=== PATIENT | female | born 1970 | race Caucasian/White ===

== ENCOUNTER 2016-09-10 09:41 | Day surgery (SDC) | payer BC ==
[2016-09-08 14:30] VITALS: BMI 25.6
[~2016-09-10 09:41] MED LIST: LACTATED RINGERS 1,000 ML IV SCH; LIDOCAINE 1% 20 ML VIAL (10MG/ML) FOR IV START INTRADERMA PRN
[2016-09-10] MEDS ORDERED: SCOPOLAMINE 1.5MG/72HR PATCH TRANSDERM STA (10:32)
[2016-09-10] MEDS ORDERED: ONDANSETRON 4 MG/2 ML VIAL IVP STA (10:32)
[2016-09-10 10:35] VITALS: TEMP 98.3
[2016-09-10] MEDS ORDERED: SCOPOLAMINE 1.5MG/72HR PATCH TRANSDERM ONE (10:42)
[2016-09-10] MEDS ORDERED: LIDOCAINE 1% INJ 10MG/ML (20 ML MDV) ONE (10:44)
[2016-09-10] MEDS ORDERED: PROPOFOL 10 MG/ML 20 ML VIAL IV ONE (10:44)
--- NOTE | 2016-09-10 11:02 | P.PCN ---
Date of Procedure: 09/10/16 Preoperative Diagnosis: Postoperative Diagnosis: Procedure(s) Performed: BRIEF HISTORY: Patient is a 46year-old, pleasant, white female, scheduled for an upper endoscopy as a part of evaluation of long-standing history of gastro esophageal reflux symptoms of several years duration. For the last 2 months she is been having intermittent dysphagia to solids especially with meat and bread but denies any choking episodes. She remains on Nexium 40 mg daily for several years. She is scheduled for an upper endoscopy with possible dilation today. PROCEDURE PERFORMED: Esophagogastroduodenoscopy with biopsy . PREOPERATIVE DIAGNOSIS: long-standing history of GERD and intermittent dysphagia to solids IV sedation per anesthesia. PROCEDURE: After informed consent was obtained, the patient was brought into the endoscopy unit. IV sedation was administered by Anesthesia under continuous monitoring. Initially the Olympus GIF-140 video endoscope was inserted into the mouth. Esophagus intubated without any difficulty. It was gradually advanced into the stomach and duodenum and carefully examined. The bulb and the second part of the duodenum appeared normal. The scope at this time was withdrawn to the stomach, adequately insufflated with air, and upon careful examination, mucosa of the antrum had mild mottling of the mucosa and biopsies were done from this area. The body, cardia and the fundus appeared normal. The scope was then withdrawn into the esophagus. Small hiatal hernia noted.The GE junction was located at 39 cm from the incisors. There were superficial mucosal rings noted in the distal esophagus but no obvious stricture identified. The rest of the esophagus appeared normal. Biopsies were done from the mid and distal esophagus to rule out years of age esophagitis. There were no erosions or ulcerations seen and the patient tolerated the procedure well. IMPRESSION: 1. Mild antral gastritis 2. Multiple small gastric polyps 3. Small hiatal hernia 4. Mild reflux esophagitis 5. Superficial mucosal rings in the distal esophagus but no esophageal stricture, status post biopsy to rule out eosinophilic esophagitis. RECOMMENDATIONS: The findings of this examination were discussed with the patient as well as a family. She was advised to follow with the biopsy results. In the meantime she will continue with Nexium 40 mg daily and follow antireflux measures. She was advised to follow up in office in 3-4 weeks. Implants: Indications for Procedure: Operative Findings: Description of Procedure:
[2016-09-10 11:11] VITALS: RESP 18
[2016-09-10 11:23] VITALS: BP 116/79; PULSE 80
== END 2016-09-10 12:03 | disposition home or self-care (01) ==
LOC: ORWHC2ENDO 09:41
PROVIDERS: ATTEND Internal Medicine Gastroenterology
DX: K31.7 Polyp of stomach and duodenum (principal); K44.9 Diaphragmatic hernia without obstruction or gangrene; K29.70 Gastritis, unspecified, without bleeding; K21.0 Gastro-esophageal reflux disease with esophagitis; R13.10 Dysphagia, unspecified; I10 Essential (primary) hypertension; J45.909 Unspecified asthma, uncomplicated; Z79.899 Other long term (current) drug therapy
CPT/HCPCS: 81025; 88305; 88342; 43239; J2001; J2704

== ENCOUNTER 2018-10-13 10:12 | Emergency (ER) | payer BC ==
[2018-10-13 10:20] VITALS: RESP 16; TEMP 97.9
[2018-10-13] MEDS ORDERED: KETOROLAC 30 MG/ML 1 ML VIAL IVP STA (10:37)
[2018-10-13] MEDS ORDERED: SODIUM CHLORIDE 0.9% 500 ML 500 ML IV STA (10:37)
[2018-10-13] MEDS ORDERED: SODIUM CHLORIDE 0.9% 1,000 ML IV STA (10:37)
[2018-10-13 10:45] LABS: Basophils # (A) 0.1 k/uL (0-0.2); Basophils % (A) 1 %; Eosinophils # (A) 0.2 k/uL (0-0.7); Eosinophils % (A) 2 %; HCT 43.4 % (34.0-46.0); HGB 14.5 gm/dL (11.4-16.0); Lymphocytes # (A) 2.1 k/uL (1.0-4.8); Lymphocytes % (A) 21 %; MCH 31.7 pg (25.0-35.0); MCHC 33.3 g/dL (31.0-37.0); Monocytes # (A) 0.4 k/uL (0-1.0); Monocytes % (A) 4 %; Neutrophils # (A) 7.1 k/uL (1.3-7.7); Neutrophils % (A) 71 %; Platelet Count 483 k/uL (150-450); RBC 4.57 m/uL (3.80-5.40)
[2018-10-13 10:57] LABS: ALT 23 U/L (9-52); AST 23 U/L (14-36); African American GFR (CKD) >90 (>60 ml/min/1.73 sqM); Albumin 4.8 g/dL (3.5-5.0); Alkaline Phosphatase 59 U/L (38-126); Amylase 84 U/L (30-110); Anion Gap 13 mmol/L; Blood Urea Nitrogen 9 mg/dL (7-17); Calcium 10.2 mg/dL (8.4-10.2); Carbon Dioxide 27 mmol/L (22-30); Chloride 102 mmol/L (98-107); Glucose 104 mg/dL (74-99); Non-African American GFR(CKD) >90 (>60 ml/min/1.73 sqM); Potassium 3.7 mmol/L (3.5-5.1); Sodium 142 mmol/L (137-145); Total Bilirubin 0.8 mg/dL (0.2-1.3)
--- NOTE | 2018-10-13 10:57 | CT ---
EXAMINATION TYPE: CT abdomen pelvis wo con DATE OF EXAM: 10/13/2018 COMPARISON: None HISTORY: 48-year-old female LLQ pain CT DLP: 410.4 mGycm. Automated exposure control for dose reduction was used. TECHNIQUE: Contiguous axial scanning of the abdomen and pelvis without IV contrast. Coronal and sagit etj reconstructions performed. FINDINGS: Heart normal size without pericardial effusion. Lung bases clear without pleural effusion. Small hiatal hernia. Liver is upper limits of normal in size at 17.4 cm. Otherwise, noncontrast appearance of the liver, gallbladder, adrenal glands, seen with hilar splenule , and pancreas show no gross abnormality. Nonobstructive 8 mm right renal calculus. Punctate nonobstructive 2 mm left renal calculus. There is mild to moderate hydronephrosis along with left-sided hydroureter and a 7 mm calculus within the distal third left ureter. No dilated small bowel, free fluid, or free air. No mesenteric or retroperitoneal lymphadenopathy. Tiny fatty umbilical hernia. Mildly redundant sigmoid colon. Mild scattered stool. No pericolonic inflammatory change. Bladder partially distended. Uterus is anteverted. Some calcifications within and heterogeneity sugge st underlying fibroid change. The ovaries are visualized. No abnormal fluid collection in the pelvis or pelvic lymphadenopathy. Bones: Mild degenerative change at the hips. Bilateral L5 pars defects without malalignment. IMPRESSION: 1. A 7 mm calculus in the distal left ureter with mild to moderate obstructive uropathy. 2. Additional 8 mm right and 2 mm left nonobstructive renal calculi. 3. Small hiatal hernia and bilateral L5 pars defects.
--- NOTE | 2018-10-13 10:59 | ED ---
General Adult HPI - General Chief complaint: Urogenital Stated complaint: Abd pain Time Seen by Provider: 10/13/18 10:22 Source: patient, RN notes reviewed Mode of arrival: ambulatory Limitations: no limitations - History of Present Illness Initial comments: 48-year-old female presents emergency Department chief complaint left lower quadrant abdominal pain, hematuria. Patient states that she was some pain yesterday has progressively worsened she does admit that it does wax and wane. Patient states nothing really makes pain feel better or worse she has been told she's had kidney stone years ago but states was told that he would not pass. Patient states that she has no increased urinary frequency or dysuria. Patient states when she first noticed the blood she thought it was vaginal bleeding but states that she does have a mental cycle. Patient denies any cramping denies any nausea vomiting diarrhea or constipation. No fevers or chills. - Related Data Home Medications Medication Instructions Recorded Confirmed Fish Oil/Dha/Epa [Fish Oil 1,200 2 cap PO DAILY 09/08/16 10/13/18 mg Fish Oil] Bisoprol/Hydrochlorothiazide 1 tab PO DAILY 10/13/18 10/13/18 [Bisoprolol-Hctz 5-6.25 mg Tab] L.acidoph,Paracasei, B.lactis 1 cap PO DAILY 10/13/18 10/13/18 [Probiotic] Omeprazole 20 mg PO BID 10/13/18 10/13/18 Previous Rx's Medication Instructions Recorded Hydrocodone/Acetaminophen [[place] 1 tab PO Q6HR PRN #12 tab 10/13/18 5-325] Ibuprofen [Motrin] 600 mg PO Q8HR PRN #30 tab 10/13/18 Ondansetron Odt [Zofran Odt] 4 mg PO Q8HR PRN #10 tab 10/13/18 Tamsulosin [Flomax] 0.4 mg PO DAILY #7 cap 10/13/18 Allergies Allergy/AdvReac Type Severity Reaction Status Date / Time No Known Allergies Allergy Verified 10/13/18 11:05 Review of Systems ROS Statement: Those systems with pertinent positive or pertinent negative responses have been documented in the HPI. ROS Other: All systems not noted in ROS Statement are negative. Past Medical History Past Medical History: Asthma, GERD/Reflux, Hypertension Additional Past Medical History / Comment(s): hx migraines, hiatal hernia, History of Any Multi-Drug Resistant Organisms: None Reported Additional Past Surgical History / Comment(s): EGD x 2 Past Anesthesia/Blood Transfusion Reactions: Motion Sickness, Postoperative Nausea & Vomiting (PONV) Past Psychological History: No Psychological Hx Reported Smoking Status: Never smoker - Past Family History Mother Family Medical History: No Reported History General Exam Limitations: no limitations General appearance: alert, in no apparent distress Head exam: Present: atraumatic, normocephalic, normal inspection Eye exam: Present: normal appearance, PERRL, EOMI. Absent: scleral icterus, conjunctival injection, periorbital swelling ENT exam: Present: normal exam, normal oropharynx, mucous membranes moist, TM's normal bilaterally Neck exam: Present: normal inspection, full ROM. Absent: tenderness, meningismus, lymphadenopathy Respiratory exam: Present: normal lung sounds bilaterally. Absent: respiratory distress, wheezes, rales, rhonchi, stridor Cardiovascular Exam: Present: regular rate, normal rhythm, normal heart sounds. Absent: systolic murmur, diastolic murmur, rubs, gallop, clicks GI/Abdominal exam: Present: soft, normal bowel sounds. Absent: distended, tenderness (No change in patient's pain over the area reported discomfort), guarding, rebound, rigid Back exam: Absent: CVA tenderness (R), CVA tenderness (L) Neurological exam: Present: alert, oriented X3, CN II-XII intact Skin exam: Present: warm, dry, intact, normal color. Absent: rash Course Vital Signs 10/13/18 10:17 Temperature 97.9 F Pulse Rate 70 Respiratory 16 Rate Blood Pressure 157/94 O2 Sat by Pulse 99 Oximetry Medical Decision Making - Medical Decision Making 48-year-old female presented for left lower quadrant abdominal pain. Labs CT urinalysis obtained CT shows evidence of 7 mm obstructing stone in the left. Patient's renal function within normal limits pain is mild to moderate. Patient will be discharged with pain meds, anti-inflammatories, denies medication and Flomax. She'll follow-up with urology. - Lab Data Result diagrams: 10/13/18 10:30 10/13/18 10:30 Lab Results 10/13/18 10/13/18 10/13/18 Range/Units 10:30 10:30 10:30 WBC 10.0 (3.8-10.6) k/uL RBC 4.57 (3.80-5.40) m/uL Hgb 14.5 (11.4-16.0) gm/dL Hct 43.4 (34.0-46.0) % MCV 95.0 (80.0-100.0) fL MCH 31.7 (25.0-35.0) pg MCHC 33.3 (31.0-37.0) g/dL RDW 14.0 (11.5-15.5) % Plt Count 483 H (150-450) k/uL Neutrophils % 71 % Lymphocytes % 21 % Monocytes % 4 % Eosinophils % 2 % Basophils % 1 % Neutrophils # 7.1 (1.3-7.7) k/uL Lymphocytes # 2.1 (1.0-4.8) k/uL Monocytes # 0.4 (0-1.0) k/uL Eosinophils # 0.2 (0-0.7) k/uL Basophils # 0.1 (0-0.2) k/uL Sodium 142 (137-145) mmol/L Potassium 3.7 (3.5-5.1) mmol/L Chloride 102 (98-107) mmol/L Carbon Dioxide 27 (22-30) mmol/L Anion Gap 13 mmol/L BUN 9 (7-17) mg/dL Creatinine 0.78 (0.52-1.04) mg/dL Est GFR (CKD-EPI)AfAm >90 (>60 ml/min/1.73 sqM) Est GFR (CKD-EPI)NonAf >90 (>60 ml/min/1.73 sqM) Glucose 104 H (74-99) mg/dL Calcium 10.2 (8.4-10.2) mg/dL Total Bilirubin 0.8 (0.2-1.3) mg/dL AST 23 (14-36) U/L ALT 23 (9-52) U/L Alkaline Phosphatase 59 (38-126) U/L Total Protein 8.0 (6.3-8.2) g/dL Albumin 4.8 (3.5-5.0) g/dL Amylase 84 (30-110) U/L Lipase 98 (23-300) U/L Urine Color Light Yellow Urine Appearance Clear (Clear) Urine pH 7.0 (5.0-8.0) Ur Specific [place] 1.004 (1.001-1.035) Urine Protein Negative (Negative) Urine Glucose (UA) Negative (Negative) Urine Ketones Negative (Negative) Urine Blood Moderate H (Negative) Urine Nitrite Negative (Negative) Urine Bilirubin Negative (Negative) Urine Urobilinogen <2.0 (<2.0) mg/dL Ur Leukocyte Esterase Negative (Negative) Urine RBC 53 H (0-5) /hpf Urine WBC 1 (0-5) /hpf Ur Squamous Epith Cells 1 (0-4) /hpf Disposition Clinical Impression: Ureteral calculus, left Disposition: HOME SELF-CARE Condition: Stable Instructions (If sedation given, give patient instructions): Kidney Stones (ED) Additional Instructions: Please return to the Emergency Department if symptoms worsen or any other concerns. Prescriptions: Tamsulosin [Flomax] 0.4 mg PO DAILY #7 cap Ibuprofen [Motrin] 600 mg PO Q8HR PRN #30 tab PRN Reason: Pain Hydrocodone/Acetaminophen [Republic 5-325] 1 tab PO Q6HR PRN #12 tab PRN Reason: Pain Ondansetron Odt [Zofran Odt] 4 mg PO Q8HR PRN #10 tab PRN Reason: Nausea Is patient prescribed a controlled substance at d/c from ED?: Yes When asked, does pt state using other controlled substances?: No If prescribed controlled substance>3 days was MAPS reviewed?: Prescribed <3 Days If opioid is for acute pain is fill amount 7 days or less?: Yes If Rx opioid, was Start Talking consent form obtained?: Yes Referrals: Alexx Mak DO [Primary Care Provider] - 1-2 days Anibal Almeida MD [STAFF PHYSICIAN] - 1-2 days Time of Disposition: 11:32
[2018-10-13 11:00] LABS: Appearance,Urine Clear (Clear); Bilirubin,Urine Negative (Negative); Blood,Urine Moderate (Negative); Color,Urine Light Yellow; Glucose,Urine (UA) Negative (Negative); Ketones,Urine Negative (Negative); Leukocyte Esterase,Urine Negative (Negative); Nitrite,Urine Negative (Negative); Protein,Urine Negative (Negative); RBC,Urine 53 /hpf (0-5); Specific Gravity,Urine 1.004 (1.001-1.035); Squamous Epithelial Cell,Urine 1 /hpf (0-4); Urobilinogen,Urine <2.0 mg/dL (<2.0); WBC,Urine 1 /hpf (0-5)
[2018-10-13] MEDS ORDERED: MORPHINE SULFATE 4 MG/ML SYRINGE IVP STA (11:39)
[2018-10-13] MEDS ORDERED: ONDANSETRON 4 MG/2 ML VIAL IVP STA (11:39)
[2018-10-13 12:37] VITALS: BP 140/88; PULSE 72
== END 2018-10-13 12:38 | disposition home or self-care (01) ==
LOC: EC 10:12
DX: N20.1 Calculus of ureter (principal); K21.9 Gastro-esophageal reflux disease without esophagitis; I10 Essential (primary) hypertension; Z79.899 Other long term (current) drug therapy
CPT/HCPCS: 36415; 80053; 82150; 83690; 85025; 81001; 74176; 96374; 96375 ×2; 96361 ×2; 99284; J2270; J2405; J1885

== ENCOUNTER 2020-05-24 07:24 | Day surgery (SDC) | payer BC ==
[2020-05-22 09:30] VITALS: BMI 26.6
--- NOTE | 2020-05-24 04:44 | P.GSHP ---
History of Present Illness H&P Date: 05/24/20 CHIEF COMPLAINT: Colon screen HISTORY OF PRESENT ILLNESS: The patient is a 50-year-old female who presents for colon screen. Lower endoscopy was offered for further evaluation and management. PAST MEDICAL HISTORY: Please see list. PAST SURGICAL HISTORY: Please see list. MEDICATIONS: Please see list. ALLERGIES: Please see list. SOCIAL HISTORY: No illicit drug use FAMILY HISTORY: No reports of Crohn disease or ulcerative colitis. REVIEW OF ORGAN SYSTEMS: CONSTITUTIONAL: No reports of fevers or chills. PHYSICAL EXAM: VITAL SIGNS: Stable GENERAL: Well-developed pleasant in no acute distress. HEENT: No scleral icterus. Extraocular movements grossly intact. Moist buccal mucosa. NECK: Supple without lymphadenopathy. CHEST: Unlabored respirations. Equal bilateral excursions. CARDIOVASCULAR: Regular rate and rhythm. Distal 2+ pulses. ABDOMEN: Soft, nontender, nondistended. MUSCULOSKELETAL: No clubbing, cyanosis, or edema. ASSESSMENT: 1. Colon screen. PLAN: 1. Recommend proceeding with a lower endoscopy Past Medical History Past Medical History: Asthma, GERD/Reflux, Hypertension Additional Past Medical History / Comment(s): hx migraines, hiatal hernia, CONSTIPATION/DIARRHEA. History of Any Multi-Drug Resistant Organisms: None Reported Past Surgical History: Uterine Ablation Additional Past Surgical History / Comment(s): EGD x 2 Past Anesthesia/Blood Transfusion Reactions: Previous Problems w/ Anesthesia, Motion Sickness, Postoperative Nausea & Vomiting (PONV) Additional Past Anesthesia/Blood Transfusion Reaction / Comment(s): WAKES UP CRYING Past Psychological History: No Psychological Hx Reported Smoking Status: Never smoker Past Alcohol Use History: Occasional Past Drug Use History: None Reported - Past Family History Mother Family Medical History: No Reported History Father Family Medical History: Cancer Additional Family Medical History / Comment(s): COLON CANCER Medications and Allergies Home Medications Medication Instructions Recorded Confirmed Type Fish Oil/Dha/Epa [Fish Oil 1,200 1 cap PO DAILY 09/08/16 05/22/20 History mg Fish Oil] Omeprazole 20 mg PO DAILY 10/13/18 05/22/20 History Albuterol Inhaler [Ventolin Hfa 1 puff INHALATION DIRECTED PRN 05/22/20 05/22/20 History Inhaler] Bisoprolol-Hctz 5-6.25 mg [Ziac 1 tab PO DAILY 05/22/20 05/22/20 History 5-6.25 MG] Montelukast [Singulair] 10 mg PO HS 05/22/20 05/22/20 History Multivitamins, Thera [Multivitamin 1 tab PO DAILY 05/22/20 05/22/20 History (formulary)] Spironolactone 100 mg PO DAILY 05/22/20 05/22/20 History Allergies Allergy/AdvReac Type Severity Reaction Status Date / Time No Known Allergies Allergy Verified 05/22/20 09:10
[~2020-05-24 07:24] MED LIST changes: +LIDOCAINE 1% (10MG/ML) FOR IV START INTRADERMA PRN; -LIDOCAINE 1% 20 ML VIAL (10MG/ML) FOR IV START INTRADERMA PRN
[2020-05-24 07:45] VITALS: RESP 16; TEMP 97.7
[2020-05-24] MEDS ORDERED: ONDANSETRON 4 MG/2 ML VIAL ONE (07:53)
[2020-05-24] MEDS ORDERED: SCOPOLAMINE 1.5MG/72HR PATCH TRANSDERM ONE (08:02)
[2020-05-24] MEDS ORDERED: ONDANSETRON 4 MG/2 ML VIAL IVP ONE (08:04)
[2020-05-24] MEDS ORDERED: LIDOCAINE 1% INJ 10MG/ML (20 ML MDV) ONE (08:26)
[2020-05-24] MEDS ORDERED: fentaNYL (PF) 50 MCG/ML 2 ML AMP ONE (08:26)
[2020-05-24] MEDS ORDERED: PROPOFOL 10 MG/ML 20 ML VIAL IV ONE (08:26)
--- NOTE | 2020-05-24 08:57 | P.PCN ---
Date of Procedure: 05/24/20 Description of Procedure: PREOPERATIVE DIAGNOSIS: Family stage IV colon cancer, father Change in bowel movements with diarrhea Colonoscopy screening, first POSTOPERATIVE DIAGNOSIS: Tubular adenoma ascending colon Tubular adenoma sigmoid colon Internal and external hemorrhoids, grade 2 OPERATION: Colonoscopy to the ileocecal valve and appendiceal orifice, cecum Colonoscopy with hot snare polypectomy SURGEON: Nina Valdez MD. ANESTHESIA: MAC. INDICATIONS: The patient is an 50-year-old female who presents her father having stage IV metastatic colon cancer. This is her first colonoscopy. Benefits and risks were described and informed consent was obtained. DESCRIPTION OF PROCEDURE: The patient had undergone Suprep. The patient had been brought into the operating room and laid in the left lateral decubitus position. After adequate intravenous sedation, the rectum was examined with 2% lidocaine jelly. The prostate was unremarkable. External hemorrhoids were encountered. The rectal tone was within normal limits. No lesions were palpated in the rectal vault. An Olympus colonoscope was advanced until the cecum, ileocecal valve and appendiceal orifice were clearly viewed. The prep was excellent. Nos igmoid diverticulosis was encountered. Colonic polyps were found and removed. No evidence of focal colitis was found. Retroflexion of the scope demonstrated grade 2 internal hemorrhoids without active bleeding or inflammation. The colon was desufflated. The patient had tolerated the procedure well. Withdrawal time was over 6 minutes. FINDINGS: Aronchick preparation quality scale 1 (1-5) Internal hemorrhoids, grade 2 External hemorrhoids, grade 2 No arteriovenous malformations. No sigmoid diverticulosis Removal of 2 polyps from the proximal, mid transverse colon and descending colon: - Snare polypectomy distal ascending colon, 6 mm tubulovillous adenoma polyp. - Snare polypectomy at 15 cm from the anal verge, 4 mm flat villous adenoma polyp, sigmoid colon. No focal colitis. RECOMMENDATIONS: Repeat colonoscopy in 3 years, 2023 Plan - Discharge Summary New Discharge Prescriptions: Continue Fish Oil/Dha/Epa [Fish Oil 1,200 mg Fish Oil] 1 cap PO DAILY Omeprazole 20 mg PO DAILY Multivitamins, Thera [Multivitamin (formulary)] 1 tab PO DAILY Montelukast [Singulair] 10 mg PO HS Bisoprolol-Hctz 5-6.25 mg [Ziac 5-6.25 MG] 1 tab PO DAILY Spironolactone 100 mg PO DAILY Albuterol Inhaler [Ventolin Hfa Inhaler] 1 puff INHALATION DIRECTED PRN PRN Reason: Shortness Of Breath Discharge Medication List Fish Oil/Dha/Epa [Fish Oil 1,200 mg Fish Oil] 1 cap PO DAILY 09/08/16 [History] Omeprazole 20 mg PO DAILY 10/13/18 [History] Albuterol Inhaler [Ventolin Hfa Inhaler] 1 puff INHALATION DIRECTED PRN 05/22/20 [History] Bisoprolol-Hctz 5-6.25 mg [Ziac 5-6.25 MG] 1 tab PO DAILY 05/22/20 [History] Montelukast [Singulair] 10 mg PO HS 05/22/20 [History] Multivitamins, Thera [Multivitamin (formulary)] 1 tab PO DAILY 05/22/20 [History] Spironolactone 100 mg PO DAILY 05/22/20 [History] Follow up Appointment(s)/Referral(s): Nina Valdez MD [STAFF PHYSICIAN] - 05/29/20 Patient Instructions/Handouts: *[facility] - (Anesthesia) Endoscopy Discharge Instructions, *[facility] - Scopalamine Patch Instructions, Colonoscopy (DC) Activity/Diet/Wound Care/Special Instructions: Repeat colonoscopy 3 years, 2023 Discharge Disposition: HOME SELF-CARE
[2020-05-24 09:23] VITALS: BP 115/65; PULSE 73
== END 2020-05-24 10:28 | disposition home or self-care (01) ==
LOC: ORWHC2ENDO 07:24
PROVIDERS: ATTEND Surgery Plastic and Reconstructive Surgery
DX: Z12.11 Encounter for screening for malignant neoplasm of colon (principal); D12.2 Benign neoplasm of ascending colon; K63.5 Polyp of colon; K64.1 Second degree hemorrhoids; K21.9 Gastro-esophageal reflux disease without esophagitis; I10 Essential (primary) hypertension; J45.909 Unspecified asthma, uncomplicated; K44.9 Diaphragmatic hernia without obstruction or gangrene; Z98.890 Other specified postprocedural states; Z80.0 Family history of malignant neoplasm of digestive organs; Z79.899 Other long term (current) drug therapy
CPT/HCPCS: 81025; 88305; 45385; J2405; J2001; J3010; J2704

== ENCOUNTER → 2020-09-06 | Outpatient (CLI) | payer BC ==
--- NOTE | 2020-09-07 11:21 | MM ---
Reason for exam: screening (asymptomatic). Last mammogram was performed 5 years and 5 months ago. History: Family history of breast cancer in paternal aunt at age 65. Took hormonal contraceptives beginning at age 17. Physical Findings: A clinical breast exam by your physician is recommended on an annual basis and results should be correlated with mammographic findings. MG Screening Mammo w CAD Bilateral CC and MLO view(s) were taken. Prior study comparison: April 09, 2015, right breast MG 3d work up w/cad RT. December 21, 2014, bilateral MG screening mammo w CAD. The breast tissue is heterogeneously dense. This may lower the sensitivity of mammography. No definite mammographic correlate for left breast itchiness and clinical follow up and ultrasound are recommended. Please note: pagets disease of the nipple can present with itchiness. ASSESSMENT: Incomplete: need additional imaging evaluation, BI-RAD 0 RECOMMENDATION: Ultrasound of the left breast. [facility] will attempt to contact patient to return for ultrasound.
== END | disposition home or self-care (01) ==
LOC: RADMAMWWP 09:58
PROVIDERS: ATTEND Family Medicine
DX: Z12.31 Encounter for screening mammogram for malignant neoplasm of breast (principal); Z80.3 Family history of malignant neoplasm of breast
CPT/HCPCS: 77067

== ENCOUNTER → 2020-10-01 | Outpatient (CLI) | payer BC ==
--- NOTE | 2020-10-01 08:34 | USB ---
EXAMINATION TYPE: US breast workup limited LT DATE OF EXAM: 10/01/2020 COMPARISON: 09/06/2020, 12/21/2014 CLINICAL HISTORY: R92.8 Abn mammo. Findings: The left breast was scanned with ultrasound at 11-12:00 and in the retroareolar region and axilla. No sonographic correlate for patient's skin itching. IMPRESSION: No sonographic correlate for the patient's skin itching. Patient reports she is being seen by dermato logy for this finding and continued clinical follow-up is recommended. BI-RADS 1, negative. Patient is due for her bilateral mammogram in August 2021.
== END | disposition home or self-care (01) ==
LOC: RADUSWWP 07:44
PROVIDERS: ATTEND Family Medicine
DX: R92.8 Other abnormal and inconclusive findings on diagnostic imaging of breast (principal)

== ENCOUNTER → 2020-10-01 | Outpatient (CLI) | payer BC ==
--- NOTE | 2020-10-01 08:56 | XR ---
EXAMINATION TYPE: XR chest 2V DATE OF EXAM: 10/01/2020 COMPARISON: 10/19/2013 HISTORY: Elevated platelets TECHNIQUE: Frontal and lateral views of the chest are obtained. FINDINGS: There is no focal air space opacity, pleural effusion, or pneumothorax seen. The cardiac silhouette size is within normal limits. The osseous structures are intact. IMPRESSION: No acute cardiopulmonary process.
== END | disposition home or self-care (01) ==
LOC: RADXRMAIN 08:40
PROVIDERS: ATTEND Internal Medicine Hematology & Oncology
DX: D47.3 Essential (hemorrhagic) thrombocythemia (principal)
CPT/HCPCS: 71046

== ENCOUNTER → 2021-02-06 | Outpatient (CLI) | payer BC ==
[2021-02-06 14:32] LABS: Basophils # (A) 0.07 X 10*3/uL (0.00-0.10); Basophils % (A) 0.7 %; Eosinophils # (A) 0.19 X 10*3/uL (0.04-0.35); HCT 41.8 % (37.2-46.3); HGB 13.8 g/dL (12.0-15.0); Lymphocytes # (A) 2.18 X 10*3/uL (0.90-5.00); Lymphocytes % (A) 23.1 %; MCH 31.2 pg (27.0-32.0); MCV 94.6 fL (80.0-97.0); Mean Platelet Volume 11.2 fL (9.5-12.2); Monocytes # (A) 0.67 X 10*3/uL (0.20-1.00); Monocytes % (A) 7.1 %; Neutrophils # (A) 6.26 X 10*3/uL (1.80-7.70); Neutrophils % (A) 66.4 %; Platelet Count 477 X 10*3/uL (140-440); RBC 4.42 X 10*6/uL (4.10-5.20); RDW 12.5 % (11.5-14.5); WBC 9.44 X 10*3/uL (4.50-10.00)
== END | disposition home or self-care (01) ==
LOC: LABWHC1 02-05 13:13
DX: D47.1 Chronic myeloproliferative disease (principal)
CPT/HCPCS: 36415; 85025

== ENCOUNTER → 2021-10-16 | Outpatient (CLI) | payer BC ==
[2021-10-16 10:29] LABS: Basophils # (A) 0.06 X 10*3/uL (0.00-0.10); Basophils % (A) 0.5 %; Eosinophils # (A) 0.16 X 10*3/uL (0.04-0.35); Eosinophils % (A) 1.4 %; HCT 41.5 % (37.2-46.3); HGB 13.7 g/dL (12.0-15.0); Immature Grans, Automated 0.9 %; Lymphocytes # (A) 4.68 X 10*3/uL (0.90-5.00); Lymphocytes % (A) 41.1 %; MCH 31.1 pg (27.0-32.0); MCV 94.3 fL (80.0-97.0); Mean Platelet Volume 10.5 fL (9.5-12.2); Monocytes # (A) 0.68 X 10*3/uL (0.20-1.00); NRBC Per 100 WBC 0 /100 WBCS (0.0-0.0); Neutrophils # (A) 5.71 X 10*3/uL (1.80-7.70); Neutrophils % (A) 50.1 %; Platelet Count 523 X 10*3/uL (140-440); WBC 11.39 X 10*3/uL (4.50-10.00)
== END | disposition home or self-care (01) ==
LOC: LABWHC1 07:48
PROVIDERS: ATTEND Internal Medicine
DX: D47.1 Chronic myeloproliferative disease (principal)
CPT/HCPCS: 36415; 85025

== ENCOUNTER → 2021-12-12 | Outpatient (CLI) | payer BC ==
--- NOTE | 2021-12-12 16:16 | US ---
EXAMINATION TYPE: US pelvic complete DATE OF EXAM: 12/12/2021 COMPARISON: NONE CLINICAL HISTORY: N95.0 POSTMENOPAUSAL BLEEDING. TECHNIQUE: . Transabdominal sonographic images of the pelvis were acquired. Transvaginal sonographi c images were medically necessary to better assess the following anatomy: Date of LMP: EXAM MEASUREMENTS: Uterus: 10.0 x 5.1 x 5.7 cm Endometrial Stripe: 0.7 cm Right Ovary: 2.6 x 1.5 x 1.4 cm Left Ovary: 2.8 x 2.1 x 2.0 cm 1. Uterus: heterogeneous with multiple fibroids and calcifications largest fibroid measuring 1.9 x 1 .5 x 2.7cm, largest calcification measuring 1.0 x 0.6 x 1.0cm 2. Endometrium: thickened for post menopausal patient 3. Right Ovary: wnl 4. Left Ovary: wnl 5. Bilateral Adnexa: wnl 6. Posterior cul-de-sac: wnl Urinary bladder is sonolucent. Posterior wall is normal. IMPRESSION: 1. Calcified uterine fibroids.
--- NOTE | 2021-12-13 07:37 | MM ---
Reason for Exam: Screening (asymptomatic). Last mammogram was performed 1 year(s) and 3 month(s) ago. Patient History: Menarche at age 12. First Full-Term at age 30. Hormonal Contraceptives, from age 17 until age 33. Paternal aunt had breast cancer, age 65. Last menstrual period: Risk Values: Alia 5 year model risk: 1.2%. NCI Lifetime model risk: 10.8%. Prior Study Comparison: 12/21/2014 Bilateral Screening Mammogram, [facility]. 04/09/2015 Right Diagnostic Mammogram, [facility]. 09/06/2020 Bilateral Screening Mammogram, [facility]. Tissue Density: The breast tissue is heterogeneously dense. This may lower the sensitivity of mammography. Findings: Analyzed By CAD. There is no suspicious group of microcalcifications or new suspicious mass in either breast. Overall Assessment: Benign, BI-RAD 2 Management: Screening Mammogram of both breasts in 1 year. A clinical breast exam by your physician is recommended on an annual basis and results should be correlated with mammographic findings. Electronically signed and approved by: Thomas Leigh M.D. Radiologis
== END | disposition home or self-care (01) ==
LOC: RADUSWWP 14:53
PROVIDERS: ATTEND Family Medicine
DX: Z12.31 Encounter for screening mammogram for malignant neoplasm of breast (principal); D25.9 Leiomyoma of uterus, unspecified; Z78.0 Asymptomatic menopausal state; Z80.3 Family history of malignant neoplasm of breast
CPT/HCPCS: 76856; 77063; 77067

== ENCOUNTER → 2022-11-04 | Outpatient (CLI) | payer BC ==
[2022-11-04 15:40] LABS: Basophils # (A) 0.06 X 10*3/uL (0.00-0.10); Basophils % (A) 0.6 %; Eosinophils # (A) 0.18 X 10*3/uL (0.04-0.35); Eosinophils % (A) 1.9 %; HCT 40.8 % (37.2-46.3); HGB 14.1 d/dL (12.0-15.0); Lymphocytes # (A) 2.37 X 10*3/uL (0.90-5.00); Lymphocytes % (A) 24.4 %; MCH 32.5 pg (27.0-32.0); MCHC 34.6 d/dL (32.0-37.0); Mean Platelet Volume 10.3 FL (9.5-12.2); Monocytes # (A) 0.54 X 10*3/uL (0.20-1.00); Monocytes % (A) 5.6 %; NRBC Per 100 WBC 0 X 10*3/uL (0.00-0.01); Neutrophils # (A) 6.49 X 10*3/uL (1.80-7.70); Neutrophils % (A) 66.7 %; Platelet Count 452 X 10*3/uL (140-440); RBC 4.34 X 10*6/uL (4.10-5.20); RDW 12.9 % (11.5-14.5); WBC 9.72 X 10*3/uL (4.50-10.00)
== END | disposition home or self-care (01) ==
LOC: LABWHC1 11:56
PROVIDERS: ATTEND Internal Medicine
DX: D47.1 Chronic myeloproliferative disease (principal)
CPT/HCPCS: 36415; 85025

== ENCOUNTER 2023-05-14 06:51 | Day surgery (SDC) | payer BC ==
[~2023-05-14 06:51] MED LIST changes: -LACTATED RINGERS 1,000 ML IV SCH
--- NOTE | 2023-05-14 07:03 | P.GSHP ---
History of Present Illness H&P Date: 05/14/23 CHIEF COMPLAINT: GERD and colon screen HISTORY OF PRESENT ILLNESS: The patient is a 53-year-old female who presents with gastroesophageal reflux disease and need for colon screen. Upper and lower endoscopy were offered for further evaluation and management. PAST MEDICAL HISTORY: Please see list. PAST SURGICAL HISTORY: Please see list. MEDICATIONS: Please see list. ALLERGIES: Please see list. SOCIAL HISTORY: No illicit drug use FAMILY HISTORY: No reports of Crohn disease or ulcerative colitis. REVIEW OF ORGAN SYSTEMS: CONSTITUTIONAL: No reports of fevers or chills. GI: Denies any blood in stools or constipation. PHYSICAL EXAM: VITAL SIGNS: Stable GENERAL: Well-developed pleasant in no acute distress. HEENT: No scleral icterus. Extraocular movements grossly intact. Moist buccal mucosa. NECK: Supple without lymphadenopathy. CHEST: Unlabored respirations. Equal bilateral excursions. CARDIOVASCULAR: Regular rate and rhythm. Distal 2+ pulses. ABDOMEN: Soft, nondistended. MUSCULOSKELETAL: No clubbing, cyanosis, or edema. ASSESSMENT: 1. Gastroesophageal reflux disease 2. Colon screen. PLAN: 1. Recommend proceeding with an upper and lower endoscopy Past Medical History Past Medical History: Asthma, Cancer, Diabetes Mellitus, GERD/Reflux, Hypertension Additional Past Medical History / Comment(s): hx migraines, hiatal hernia, CONSTIPATION/DIARRHEA. hx skin cancer, blood cancer MPN. ? aggressive looking polyp last time History of Any Multi-Drug Resistant Organisms: None Reported Past Surgical History: Uterine Ablation Additional Past Surgical History / Comment(s): EGD x 2, skin cancer removed Past Anesthesia/Blood Transfusion Reactions: Previous Problems w/ Anesthesia, Motion Sickness, Postoperative Nausea & Vomiting (PONV) Additional Past Anesthesia/Blood Transfusion Reaction / Comment(s): WAKES UP CRYING, given scope patch in the past Smoking Status: Never smoker - Past Family History Mother Family Medical History: No Reported History Father Family Medical History: Cancer Additional Family Medical History / Comment(s): COLON CANCER Medications and Allergies Home Medications Medication Instructions Recorded Confirmed Type Fish Oil/Dha/Epa [Fish Oil 1,200 1 cap PO DAILY 09/08/16 05/12/23 History mg Fish Oil] Omeprazole 20 mg PO DAILY 10/13/18 05/14/23 History Albuterol Inhaler [Ventolin Hfa 1 puff INHALATION DIRECTED PRN 05/22/20 05/14/23 History Inhaler] Montelukast [Singulair] 10 mg PO HS 05/22/20 05/14/23 History Spironolactone 50 mg PO DAILY 05/22/20 05/14/23 History Aspirin 81 mg PO DAILY 05/12/23 05/12/23 History Bisoprolol-Hctz 10-6.25 mg [Ziac 1 tab PO DAILY 05/12/23 05/14/23 History 10-6.25 MG] Tirzepatide [Mounjaro] 5 mg SQ FR 05/12/23 05/12/23 History traZODone HCL [Desyrel] 50 mg PO HS 05/12/23 05/14/23 History Allergies Allergy/AdvReac Type Severity Reaction Status Date / Time No Known Allergies Allergy Verified 05/12/23 12:24
[2023-05-14 07:16] LABS: Glucose,Whole Blood 98 mg/dL (70-110)
[2023-05-14] MEDS: LACTATED RINGERS 1,000 ML IV SCH (07:18)
[2023-05-14] MEDS ORDERED: LIDOCAINE 1% INJ 10MG/ML (20 ML MDV) ONE (07:44)
[2023-05-14] MEDS ORDERED: PROPOFOL 10 MG/ML 20 ML VIAL IV ONE (07:44)
[2023-05-14 07:46] VITALS: TEMP 97.7
--- NOTE | 2023-05-14 07:57 | P.PCN ---
Date of Procedure: 05/14/23 Description of Procedure: PREOPERATIVE DIAGNOSIS: Gastroesophageal reflux disease. POSTOPERATIVE DIAGNOSIS: Gastroesophageal reflux disease. Gastric polyps Acute gastric ulcer with bleeding Diaphragmatic hiatal hernia OPERATION: Esophagogastroduodenoscopy with biopsies along esophagus, antrum and duodenum SURGEON: Nina Valdez MD ANESTHESIA: MAC. INDICATIONS: The patient is a 53-year-old female who presents with reflux disease. Benefits and risks of the procedure were described. Informed consent was obtained. DESCRIPTION: The patient was brought into the endoscopy suite and laid in the left lateral decubitus position. An Olympus gastroscope was passed along the posterior oropharynx down to the distal esophagus where the squamocolumnar junction was encountered at 32 cm from the incisors. The stomach was entered and no bile reflux was found. Additional findings are listed below. Biopsies with cold forceps were obtained of the antrum. The first through third portion of the duodenum was examined. Retroflexion of the scope confirmed Hill grade 3 lower esophageal valve. The squamocolumnar junction demonstrated LA grade B erosive esophagitis. The stomach was desufflated. The patient tolerated the procedure well. FINDINGS: Squamocolumnar junction 32 cm from the incisors. Diaphragmatic hiatus at 35 cm. Hiatal hernia, 3 cm, sliding-type Hill grade 4 lower esophageal valve. LA grade B erosive esophagitis. Biopsies obtained Biopsies obtained of the duodenum. Chronic gastritis with biopsies obtained. Acute gastric ulcer with bleeding, lesser curvature stomach proximal to angularis incisura, 2 mm with acute RECOMMENDATIONS: Omeprazole 40 mg daily for 2 weeks
[2023-05-14 08:18] LABS: Glucose,Whole Blood 86 mg/dL (70-110)
--- NOTE | 2023-05-14 08:31 | P.PCN ---
Date of Procedure: 05/14/23 Description of Procedure: PREOPERATIVE DIAGNOSIS: Personal history of colon polyps Colonoscopy screening POSTOPERATIVE DIAGNOSIS: Tubular adenoma transverse colon Internal hemorrhoids, grade 3 OPERATION: Colonoscopy to the ileocecal valve and appendiceal orifice, cecum Colonoscopy with hot snare polypectomy SURGEON: Nina Valdez MD. ANESTHESIA: MAC. INDICATIONS: The patient is an 53-year-old female who presents family history of malignant colon polyps and personal history of colon polyps. Last colonoscopy 5 years. Benefits and risks were described and informed consent was obtained. DESCRIPTION OF PROCEDURE: The patient had undergone SuFlave prep. The patient had been brought into the operating room and laid in the left lateral decubitus position. After adequate intravenous sedation, the rectum was examined with 2% lidocaine jelly. External hemorrhoids were encountered. The rectal tone was within normal limits. No lesions were palpated in the rectal vault. An Olympus colonoscope was advanced until the cecum, ileocecal valve and appendiceal orifice were clearly viewed. The prep was excellent. No sigmoid diverticulosis was encountered. Colonic polyps were found and removed. No evidence of focal colitis was found. Retroflexion of the scope demonstrated grade 3 internal hemorrhoids without active bleeding or inflammation. The colon was desufflated. The patient had tolerated the procedure well. Withdrawal time was over 6 minutes. FINDINGS: Aronchick preparation quality scale 1 (1-5) Internal hemorrhoids, grade 3 External hemorrhoids, grade 3. No arteriovenous malformations. No sigmoid diverticulosis Removal of 1 polyp: - Snare polypectomy transverse colon, 5 mm tubulovillous adenoma No focal colitis. RECOMMENDATIONS: Repeat colonoscopy 3 years, 2026 Plan - Discharge Summary Discharge Rx Participant: No New Discharge Prescriptions: Continue Fish Oil/Dha/Epa [Fish Oil 1,200 mg Fish Oil] 1 cap PO DAILY Omeprazole 20 mg PO DAILY Montelukast [Singulair] 10 mg PO HS Spironolactone 50 mg PO DAILY Albuterol Inhaler [Ventolin Hfa Inhaler] 1 puff INHALATION DIRECTED PRN PRN Reason: Shortness Of Breath traZODone HCL [Desyrel] 50 mg PO HS Bisoprolol-Hctz 10-6.25 mg [Ziac 10-6.25 MG] 1 tab PO DAILY Tirzepatide [Mounjaro] 5 mg SQ FR Aspirin 81 mg PO DAILY Discharge Medication List Fish Oil/Dha/Epa [Fish Oil 1,200 mg Fish Oil] 1 cap PO DAILY 09/08/16 [History] Omeprazole 20 mg PO DAILY 10/13/18 [History] Albuterol Inhaler [Ventolin Hfa Inhaler] 1 puff INHALATION DIRECTED PRN 05/22/20 [History] Montelukast [Singulair] 10 mg PO HS 05/22/20 [History] Spironolactone 50 mg PO DAILY 05/22/20 [History] Aspirin 81 mg PO DAILY 05/12/23 [History] Bisoprolol-Hctz 10-6.25 mg [Ziac 10-6.25 MG] 1 tab PO DAILY 05/12/23 [History] Tirzepatide [Mounjaro] 5 mg SQ FR 05/12/23 [History] traZODone HCL [Desyrel] 50 mg PO HS 05/12/23 [History] Follow up Appointment(s)/Referral(s): Nina Valdez MD [STAFF PHYSICIAN] - 06/09/23 Patient Instructions/Handouts: Colorectal Polyps (GEN), Hiatal Hernia (ED) Activity/Diet/Wound Care/Special Instructions: Repeat colonoscopy 3 years, 2026 Discharge Disposition: HOME SELF-CARE
[2023-05-14 08:53] VITALS: BP 116/78; PULSE 78; RESP 16
== END 2023-05-14 09:19 | disposition home or self-care (01) ==
LOC: ORWHC2ENDO 06:51
PROVIDERS: ATTEND Surgery Plastic and Reconstructive Surgery
DX: Z12.11 Encounter for screening for malignant neoplasm of colon (principal); D12.3 Benign neoplasm of transverse colon; K21.00 Gastro-esophageal reflux disease with esophagitis, without bleeding; K64.2 Third degree hemorrhoids; K31.7 Polyp of stomach and duodenum; K44.9 Diaphragmatic hernia without obstruction or gangrene; K25.4 Chronic or unspecified gastric ulcer with hemorrhage; J45.909 Unspecified asthma, uncomplicated; E11.9 Type 2 diabetes mellitus without complications; K21.9 Gastro-esophageal reflux disease without esophagitis; I10 Essential (primary) hypertension; Z80.0 Family history of malignant neoplasm of digestive organs; Z86.010 Personal history of colon polyps; Z79.899 Other long term (current) drug therapy
CPT/HCPCS: 88305; 45385; 43239; J2001; J2704

== ENCOUNTER → 2023-10-14 | Outpatient (CLI) | payer BC ==
--- NOTE | 2023-10-14 08:28 | MM ---
Reason for Exam: Follow-up at short interval from prior study. Last screening mammogram was performed 9 month(s) ago. Patient History: Menarche at age 12. First Full-Term at age 30. Hormonal Contraceptives, from age 17 until age 33. Paternal aunt had breast cancer, age 65. Risk Values: Alia 5 year model risk: 1.3%. NCI Lifetime model risk: 10.5%. Prior Study Comparison: 12/12/2021 Bilateral MG 3D screening mammo w/cad, [facility] 12/25/2022 Bilateral MG 3D screening mammo w/cad, [facility]. 12/30/2022 Left MG 3D work up w/cad , [facility]. Tissue Density: Left: The breasts are heterogeneously dense, which may obscure small masses. Findings: Analyzed By CAD. No distinct mass or distortion. Asymmetric breast tissue upper outer left breast unchanged dating back to 2020. No suspicious microcalcifications. Overall Assessment: Benign, BI-RAD 2 Management: Screening Mammogram of both breasts in 6 months. . Results were given to the patient verbally at the time of exam. Patient should continue monthly self-breast exams. A clinical breast exam by your physician is recommended on an annual basis. This exam should not preclude additional follow-up of suspicious palpable abnormalities. Note on Alia scores and lifetime risk: 1. A Alia score greater than 3% is considered moderate risk. If this is the case, consider specialist referral to assess eligibility for a risk reducing agent. 2. If overall lifetime risk for the development of breast cancer is 20% or higher, the patient may qualify for future screening with alternating mammogram and breast MRI. Electronically signed and approved by: Thomas Leigh M.D. Radiologis
== END | disposition home or self-care (01) ==
LOC: RADMAMWWP 07:58
PROVIDERS: ATTEND Family Medicine
DX: R92.8 Other abnormal and inconclusive findings on diagnostic imaging of breast (principal); R92.332 Mammographic heterogeneous density, left breast; Z80.3 Family history of malignant neoplasm of breast
CPT/HCPCS: 77061; 77065

== ENCOUNTER → 2024-01-12 | Outpatient (CLI) | payer BC ==
[2024-01-12 15:56] LABS: Basophils # (A) 0.06 X 10*3/uL (0.00-0.10); Basophils % (A) 0.7 %; Eosinophils # (A) 0.34 X 10*3/uL (0.04-0.35); Eosinophils % (A) 4.2 %; HCT 41.5 % (37.2-46.3); Lymphocytes # (A) 1.94 X 10*3/uL (0.90-5.00); Lymphocytes % (A) 23.9 %; MCH 31.6 pg (27.0-32.0); MCHC 33.7 g/dL (32.0-37.0); MCV 93.7 FL (80.0-97.0); Mean Platelet Volume 10.1 FL (9.5-12.2); Monocytes # (A) 0.53 X 10*3/uL (0.20-1.00); Monocytes % (A) 6.5 %; NRBC Per 100 WBC 0 X 10*3/uL (0.00-0.01); Neutrophils # (A) 5.22 X 10*3/uL (1.80-7.70); Neutrophils % (A) 64.2 %; Platelet Count 500 X 10*3/uL (140-440); RBC 4.43 X 10*6/uL (4.10-5.20); RDW 12.3 % (11.5-14.5); WBC 8.13 X 10*3/uL (4.50-10.00)
== END | disposition home or self-care (01) ==
LOC: LABWHC1 08:30
PROVIDERS: ATTEND Internal Medicine
DX: D47.1 Chronic myeloproliferative disease (principal)
CPT/HCPCS: 36415; 85025

== ENCOUNTER → 2024-07-20 | Outpatient (CLI) | payer BC | END | disposition home or self-care (01) | LOC: LABWHC1 08:48 | PROVIDERS: ATTEND Family Medicine | DX: N95.1 Menopausal and female climacteric states (principal) | CPT/HCPCS: 36415; 82671; 84144; 84403 ==